=== PATIENT | female | born 1965 | race Caucasian/White ===

== ENCOUNTER 2017-08-07 19:46 | Emergency (ER) | payer MEDICAID, OTHER ==
[~2017-08-07] VITALS: Ht 165.1 cm; Wt 116.6 kg
[2017-08-07 19:50] VITALS: Ht 165.1 cm; Wt 116.6 kg
--- NOTE | 2017-08-07 22:22 | RADRPT ---
PROCEDURE: CT Head without. CLINICAL INDICATION: Syncope. TECHNIQUE: The study was performed utilizing a multi-slice, multidetector CT scanner. Direct spira l 1 mm axial sections were obtained through the head without the use of intravenous contrast materia l. 1 or more of the following dose reduction techniques were utilized: Automated exposure control, adjustment of the mA and/or kV according to patient's size, iterative reconstruction technique. Co madi and sagittal reformations were obtained. The images were reviewed on a PACS workstation. DICOM images are available. RADIATION DOSE: CTDIvol: 43.6 mGyDLP: 720.2 mGy-cm COMPARISON: No prior studies are available for comparison. FINDINGS: There is no intracranial hemorrhage, extra-axial fluid collection, mass lesion, midline shift or hyd rocephalus. The ventricles, sulci and cisterns are within normal limits. The white matter is unrem arkable. The chung-white matter differentiation is preserved. The basal cisterns are patent. The m idline structures are intact. The orbits, calvarium and extracranial soft tissues are normal in rob earance. The visualized paranasal sinuses, mastoid air cells and middle ear cavities are normally ae rated. IMPRESSION: 1. No acute intracranial abnormality. No intracranial hemorrhage, extra-axial fluid collection, ma ss lesion or hydrocephalous. RPTAT: HGAS .Brent Kathleen MD, MD Date Time Electronically viewed and signed by .Brent Kathleen MD, MD on 08/07/2017 22:21 .S/
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
--- NOTE | 2017-08-07 22:41 | RADRPT ---
PROCEDURE: CT Cervical Spine without contrast. CLINICAL INDICATION: Trauma, pain TECHNIQUE: Multiple axial cuts through the cervical spine with coronal and sagittal reformats were obtained without contrast. The calculated radiation dose measures 470 mGy centimeters. The CTDI rebecca sures 22 mGy One or more of the following dose reduction techniques were used: Automated exposure control. Adjustment of the mA and/or kV according to patient size. Use of iterative reconstruction technique. COMPARISON: None available FINDINGS: There is a mild reversal of the normal cervical lordosis. There is mild anterolisthesis at C4-C5, 2 mm. There is moderate to severe disc space narrowing from C5-C6 through C7-T1. Vertebral body height s are maintained. There is no visualized fracture. There is no significant subluxation. The atlantoaxial articulation appears normal. There is normal craniocervical alignment. There are mild to moderate disc osteophyte complexes at C5-6 and C6-C7, up to 4 mm. There is uncover tebral hypertrophy most prominent at C5-6. There is multilevel facet hypertrophy, which appears mode rate on both sides at C2-C3, and on the left at C3-C4 and C4-C5. There is moderate appearing central canal stenosis at C5-C6 and C6-C7, with AP canal diameter measuring 8.5 mm. There is bony foraminal stenosis, which appears moderate on the left at C2-C3 and C5-6, and moderate on the right at C5-C6. There is no abnormal paravertebral soft tissue mass. There is atrophy or resection of the left thyro id gland, and prominence of the right thyroid gland. IMPRESSION: 1. Mild reversal of the normal cervical lordosis. 2. No visualized acute fracture or dislocation. 3. Mild to moderate disc osteophyte complexes at C5-6 and C6-C7. Associated moderate appearing cent ral canal stenosis at C5-6 and C6-C7. 4. Uncovertebral hypertrophy most prominent at C5-C6. Facet hypertrophy, appearing moderate as note d from C2-C3 through C4-C5. 5. Resulting bony foraminal stenosis, appearing moderate on the left at C2-C3, and on both sides at C5-C6. RPTAT: HBST .Robert Ayala MD, MD Date Time Electronically viewed and signed by .Robert Ayala MD, on 08/07/2017 22:41 .T/
== END 2017-08-07 23:49 | disposition left against medical advice (07) ==
LOC: FTE 19:46 → EDBD 19:46 → FTE 23:49
DX: F41.9 Anxiety disorder, unspecified (principal); R55 Syncope and collapse; S06.0X0A Concussion without loss of consciousness, initial encounter; I10 Essential (primary) hypertension; E11.9 Type 2 diabetes mellitus without complications; Y04.0XXA Assault by unarmed brawl or fight, initial encounter
CPT/HCPCS: 70450; 72125; 82962; Z7502